=== PATIENT | female | born 1940 | race Caucasian/White ===

== ENCOUNTER 2016-08-24 09:37 | Inpatient (IN) | payer OTHER ==
[2016-08-24 09:52] LABS: URINE MICRO REVIEW NEEDED? NO; URINE SOURCE VOIDED
[2016-08-24 10:03] LABS: HEMATOCRIT 45.8 % (37.0-47.0); MCH 28.6 PG (27-31); MCHC 32.8 g/dL (33-37); MCV 87.4 FL (81-99); MPV 10.3 FL (7.4-10.4); RBC 5.24 XMIL (4.2-5.4)
[2016-08-24 10:04] LABS: BILIRUBIN URINE NEGATIVE (NEGATIVE); BLOOD URINE NEGATIVE (NEGATIVE); COLOR YELLOW; GLUCOSE URINE NEGATIVE (NEGATIVE); LEUKOCYTES URINE LARGE (NEGATIVE); NITRITE URINE NEGATIVE (NEGATIVE); PH URINE 6.5; PROTEIN URINE TRACE mg/dL (NEGATIVE); TURBIDITY URINE CLEAR (CLEAR); UR EPITHELIAL CELLS <10 /HPF (<10); URINE BACTERIA 1+ /HPF; URINE RBC <10 /HPF (<10); UROBILINOGEN URINE NORMAL (NORMAL)
[2016-08-24 11:29] LABS: ALBUMIN 3.7 g/dL (3.5-5.0); CALCIUM 9.2 mg/dL (8.8-10.2); POTASSIUM 4.2 mmol/L (3.5-5.1); TOTAL BILIRUBIN 0.56 mg/dL (0.20-1.00); TOTAL PROTEIN 6.3 g/dL (6.3-8.3)
--- NOTE | 2016-08-24 13:13 | Diag Imaging Result Document ---
PROCEDURE NAME: ABDOMEN/PELVIS W/O CONTRAST - 08/24/2016 CT ABDOMEN AND PELVIS WITHOUT CONTRAST: No contrast administered per request of the referring provider. A dose-reduction protocol was used. COMPARISON: 06/15/2016. FINDINGS: There is a moderate sized hiatal hernia similar to the previous exam. There are multiple hepatic cysts similar to the previous exam. There are no acute changes identified in the liver, spleen, adrenal glands, or pancreas. There are no calcified gallstones or pericholecystic inflammatory changes identified. There are no acute abnormalities of the bilateral kidneys identified. There is no renal stone or hydronephrosis seen. There are no substantially enlarged lymph nodes identified. There is no evidence of bowel obstruction. There is colonic diverticulosis which is most extensive at the proximal sigmoid and distal descending colon. There is wall thickening at the proximal sigmoid colon, and there is inflammation of a diverticulum and surrounding fat at this location, consistent with diverticulitis. There is no abscess identified. There is no free air. IMPRESSION: Diverticulitis at proximal sigmoid colon. No abscess. No free air.
[2016-08-24] MEDS: LEVAQUIN 750 MG/D5W 150 ML IV SCH (18:10)
[2016-08-24] MEDS: LOVENOX SUBQ SCH (18:10)
[2016-08-24] MEDS: NS 1,000 ML IV SCH (18:10)
--- NOTE | 2016-08-24 19:55 | HISTORY AND PHYSICAL ---
CHIEF COMPLAINT: Abdominal pain. HISTORY OF PRESENT ILLNESS: Ms. Carter is a 76-year-old, white female patient complaining of pain in the lower abdomen. Started day before yesterday. Cramping pain, mild to moderate in intensity. Gradually getting worse. Intensity was increasing. Patient also has chills. Mild nausea. The patient has a history of diverticular disease of the colon and ischemic colitis. The patient claims her pain was same as diverticulitis. Patient was not feeling comfortable. She came for evaluation. I evaluated the patient. The patient had tenderness left colonic area, hypogastric area. I sent her for blood work, urine test and CT scan of the abdomen and pelvis. Her urinalysis did reveal mild UTI. CT scan did reveal sigmoid diverticulitis. Offered her oral antibiotics. Patient claims she does not tolerate oral antibiotics well and her oral intake was poor since yesterday. I decided to admit the patient for IV fluids, IV antibiotics. The patient was complaining of mild nausea, but no vomiting. No diarrhea, blood, or mucus in the stool. Her last bowel movement was yesterday. No abdominal distention. She denied any hematuria, no vaginal discharge, spotting, bleeding. No typical chest pain, palpitation, orthopnea, PND. No unusual cough, expectoration, hemoptysis. The patient was feeling weak, tired and no energy. No joint swelling or redness. No further history available at this time. The patient does have chronic back pain. Joint pain. No major weight loss or weight gain. No heat or cold intolerance. No further history available at this time. ALLERGIES: Flagyl. Adhesives. HOME MEDICATIONS: Synthroid, Protonix, aspirin, Coreg, Plavix, laxative, Pepcid, TriCor, Neurontin, Claritin, Hyzaar, Singular, potassium. PAST MEDICAL HISTORY: Hypertension, allergic rhinitis, hypothyroidism, peripheral neuropathy, hyperlipidemia, gastritis, history suggestive of vascular disease, ischemic colitis requiring intestinal resection, low back pain, degenerative disk disease, noninsulin-dependent diabetes mellitus. PERSONAL HISTORY: Single. Nonsmoker. Denied alcohol or substance abuse. REVIEW OF SYSTEMS: As per HPI. FAMILY HISTORY: Noncontributory. PHYSICAL EXAMINATION: GENERAL: Elderly white female patient in no acute distress. VITAL SIGNS: Blood pressure 142/97, pulse 69, respiration 18, temperature 98.9 degrees. SKIN: Normal turgor. No rash or petechiae. HEENT: Head atraumatic, normocephalic. [place] conjunctivae. Anicteric sclerae. Extraocular muscle movement normal. Fundus cannot be penetrated. Good oral hygiene. No tonsillopharyngeal congestion or exudate. Ears and nose benign. NECK: Supple. No JVD, thyromegaly or lymphadenopathy. CHEST: Bilateral good air entry present. Few basal crepitations. No rales. CARDIOVASCULAR: S1 and S2 heard. No gallop or thrill. ABDOMEN: Soft, globular. Bowel sounds present. Diffuse abdominal tenderness, more so on the left colonic area, hypogastric area. No guarding or rigidity. EXTREMITIES: No cyanosis, clubbing. No acute DVT. HEALTH COACH: Alert, awake, oriented x3. No focalities. Crepitation both the knee joints. Tenderness lumbosacral spine. LABORATORY DATA: Revealed leukocyte count 10.71, hemoglobin 15, hematocrit 45.8, platelet count 256,000. Electrolytes fairly benign. BUN 11, creatinine was 1. Blood sugar 148, urinalysis 10- 20 WBC, leukocyte large 1+ bacteria. CT scan of the abdomen and pelvis did reveal evidence of sigmoid diverticulitis. CONSIDERATION: 1. Diverticulitis. 2. Urinary tract infection. 3. Noninsulin-dependent diabetes mellitus. 4. Hypertension. 5. Hyperlipidemia. 6. Gastritis. 7. Low back pain. 8. Osteoarthritis. PLAN: Admit the patient. IV hydration. IV antibiotics. Continue home medicine. Close observation. Overall plan discussed at length with the patient and family. Deep venous thrombosis prophylaxis. They are in agreement.
[2016-08-24] MEDS: COLACE PO SCH (20:38)
[2016-08-24] MEDS: COREG PO SCH (20:38)
[2016-08-24] MEDS: SINGULAIR PO SCH (20:38)
[2016-08-24] MEDS: KLOR-CON PO SCH (20:38)
[2016-08-24] MEDS: PEPCID PO SCH (20:38)
[2016-08-24] MEDS: NEURONTIN PO SCH (20:38)
[2016-08-24] MEDS: TRICOR PO SCH (20:39)
[2016-08-24] MEDS: PLAVIX PO SCH (20:39)
[2016-08-25] MEDS: NS 1,000 ML IV SCH ×4 (04:03→23:31)
--- NOTE | 2016-08-25 05:19 | EKG Report ---
Test Performed on : 08/24/2016 5:23:52 PM Test Reason : DIVERTICULITIS Blood Pressure : / mmHG Vent. Rate : 067 BPM Atrial Rate : 067 BPM P-R Int : 154 ms QRS Dur : 084 ms QT Int : 408 ms P-R-T Axes : 036 -11 -02 degrees QTc Int : 431 ms Normal sinus rhythm. Possible Lateral infarct , age undetermined Inferior-posterior infarct (cited on or before 02-JAN-2013) Abnormal ECG When compared with ECG of 28-AUG-2014 10:33, QT has shortened Confirmed by Dewayne HDZ, MEric Florez ([id number]) on 08/25/2016 11:05:40 AM
[2016-08-25 05:50] LABS: MANUAL DIFF NEEDED? NO
[2016-08-25 05:53] LABS: BASO% 0.2 % (0.0-0.8); EOS# 0.07 X1000 (0.0-0.7); EOS% 0.8 % (0.0-10.0); HEMATOCRIT 40.5 % (37.0-47.0); IMM GRAN# 0.03 X1000 (0.0-0.04); IMM GRAN% 0.3 % (0.0-0.5); LYMPH# 1.78 X1000 (1.2-3.4); MCH 28.6 PG (27-31); MCHC 32.1 g/dL (33-37); MONO# 1.03 X1000 (0.11-0.59); MONO% 11.6 % (1.7-9.3); MPV 10.5 FL (7.4-10.4); NEUT% 67.1 % (42.2-75.2); PLT 219 X1000 (130-400); RBC 4.55 XMIL (4.2-5.4)
[2016-08-25 06:29] LABS: AGAP 13; ALBUMIN 3.2 g/dL (3.5-5.0); ALKALINE PHOSPHATASE 45 U/L (32-104); BUN 8 mg/dL (8-22); CALCIUM 8.5 mg/dL (8.8-10.2); CHLORIDE 104 mmol/L (98-107); COSMO 280; GOT 11 U/L (10-30); GPT 13 U/L (10-36); MAGNESIUM 1.6 mg/dL (1.5-2.7); SODIUM 140 mmol/L (136-145); TCO2 23 mmol/L (25-35); TOTAL BILIRUBIN 0.58 mg/dL (0.20-1.00); TOTAL PROTEIN 5.6 g/dL (6.3-8.3)
[2016-08-25] MEDS ORDERED: GLYCERIN ADULT PR ONE (06:51)
[2016-08-25 07:20] LABS: HEMOGLOBIN A1C 6.3 % (4.8-6.0)
--- NOTE | 2016-08-25 07:24 | PROGRESS NOTE ---
DATE: 08/25/2016 SUBJECTIVE: Ms. Carter is feeling fair. The patient still has pain in the abdomen, more so in the left lower quadrant and hypogastrium. No nausea or vomiting. The pain is cramping in nature. No high-grade fever or chills. Denied any diarrhea. No dysuria or hematuria. No bleeding per rectum. The patient admitted with diverticulitis. She does have underlying diabetes, hypertension, history of ischemic bowel. OBJECTIVE: Vital Signs: Her vital signs were reviewed. Neck: Supple. No JVD. Lungs: Bilateral good air entry present. Cardiovascular: S1 and S2 heard. Abdomen: Soft. Tenderness in left lower quadrant, hypogastrium. No guarding or rigidity. Extremities: No cyanosis, clubbing. No acute DVT. Central Nervous System: Alert, awake. Able to move all 4 limbs. CONSIDERATION: 1. Diverticulitis. 2. Urinary tract infection. 3. Hypertension. 4. Noninsulin dependent diabetes mellitus. 5. Hyperlipidemia. 6. Gastritis. DIAGNOSTIC DATA: Labs done today, WBC count 8.88, hemoglobin 13, hematocrit 40.5, platelets 219,000. Electrolytes were fairly benign. PLAN: We will continue current treatment. The patient requested glycerin suppository. I am going to check hemoglobin A1c level. Out of bed to chair. The overall plan was discussed with the patient. She is in agreement.
[2016-08-25] MEDS: PEPCID PO SCH ×2 (09:46→21:59)
[2016-08-25] MEDS: CLARITIN PO SCH (09:46)
[2016-08-25] MEDS: NEURONTIN PO SCH ×2 (09:46→22:00)
[2016-08-25] MEDS: COREG PO SCH ×2 (09:46→21:59)
[2016-08-25] MEDS: ASPIRIN EC PO SCH (09:46)
[2016-08-25] MEDS: HYZAAR 100/12.5 MG TAB PO SCH (09:46)
[2016-08-25] MEDS: KLOR-CON PO SCH ×2 (09:46→21:59)
[2016-08-25] MEDS: SYNTHROID PO SCH (09:47)
[2016-08-25] MEDS: LEVAQUIN 750 MG/D5W 150 ML IV SCH (16:11)
[2016-08-25] MEDS: LOVENOX SUBQ SCH (16:11)
[2016-08-25] MEDS: TRICOR PO SCH (21:59)
[2016-08-25] MEDS: PLAVIX PO SCH (21:59)
[2016-08-25] MEDS: SINGULAIR PO SCH (22:00)
[2016-08-25] MEDS: COLACE PO SCH (22:00)
[2016-08-26] MEDS: NS 1,000 ML IV SCH ×2 (03:33→13:35)
[2016-08-26] MEDS: KLOR-CON PO SCH ×2 (08:37→21:12)
[2016-08-26] MEDS: ASPIRIN EC PO SCH (08:37)
[2016-08-26] MEDS: HYZAAR 100/12.5 MG TAB PO SCH (08:37)
[2016-08-26] MEDS: SYNTHROID PO SCH (08:37)
[2016-08-26] MEDS: COREG PO SCH ×2 (08:37→21:16)
[2016-08-26] MEDS: NEURONTIN PO SCH ×2 (08:37→21:13)
[2016-08-26] MEDS: PEPCID PO SCH ×2 (08:37→21:14)
[2016-08-26] MEDS: CLARITIN PO SCH (08:38)
--- NOTE | 2016-08-26 08:52 | PROGRESS NOTE ---
DATE: 08/26/2016 SUBJECTIVE: Ms. Carter is doing better. Her pain is getting better. The patient does feel hungry. She did have bowel movement yesterday. No high-grade fever or chills. Denied any chest pain. OBJECTIVE: Vital Signs: Her vital signs noted. Patient is afebrile. Neck: Supple. No JVD. Lungs: Bilateral good air entry present. CVS: S1 and S2 heard. Abdomen: Soft, globular. Bowel sounds present. Abdominal tenderness improving. Extremities: No cyanosis, clubbing, edema. CRM CAMPAIGN MANAGER: Alert, awake, able to move all 4 limbs. CONSIDERATION: Diverticulitis clinically improving. I am going to advance diet to a gastrointestinal soft diet. If clinically the patient improves, tolerates diet well, I am planning to discharge her home tomorrow. OTHER PROBLEMS: 1. Hypertension. 2. Non-insulin dependent diabetes mellitus. 3. Osteoarthritis. PLAN: Will ambulate the patient. Continue rest of the treatment. We will check appropriate labs tomorrow. Urine culture was no growth. Blood cultures so far negative. Overall plan discussed with the patient. She is in agreement.
[2016-08-26] MEDS: LOVENOX SUBQ SCH (16:33)
[2016-08-26] MEDS: LEVAQUIN 750 MG/D5W 150 ML IV SCH (16:33)
[2016-08-26] MEDS: PLAVIX PO SCH (21:16)
[2016-08-26] MEDS: TRICOR PO SCH (21:16)
[2016-08-26] MEDS: COLACE PO SCH (21:16)
[2016-08-26] MEDS: SINGULAIR PO SCH (21:16)
[2016-08-27] MEDS: NS 1,000 ML IV SCH (00:56)
[2016-08-27 06:23] LABS: MANUAL DIFF NEEDED? NO
[2016-08-27 06:56] LABS: AGAP 12; ALBUMIN 2.9 g/dL (3.5-5.0); ALKALINE PHOSPHATASE 42 U/L (32-104); BUN 9 mg/dL (8-22); CALCIUM 8.2 mg/dL (8.8-10.2); CHLORIDE 109 mmol/L (98-107); COSMO 283; GOT 12 U/L (10-30); GPT 9 U/L (10-36); POTASSIUM 3.8 mmol/L (3.5-5.1); SODIUM 142 mmol/L (136-145); TCO2 21 mmol/L (25-35); TOTAL PROTEIN 5.2 g/dL (6.3-8.3)
[2016-08-27 07:00] LABS: BASO% 0.6 % (0.0-0.8); EOS# 0.11 X1000 (0.0-0.7); HEMATOCRIT 37.4 % (37.0-47.0); IMM GRAN# 0.04 X1000 (0.0-0.04); IMM GRAN% 0.7 % (0.0-0.5); LYMPH# 1.78 X1000 (1.2-3.4); LYMPH% 32.8 % (20.5-51.1); MCH 28.7 PG (27-31); MCHC 32.1 g/dL (33-37); MCV 89.5 FL (81-99); MONO# 0.57 X1000 (0.11-0.59); MONO% 10.5 % (1.7-9.3); MPV 10.7 FL (7.4-10.4); NEUT% 53.4 % (42.2-75.2); PLT 215 X1000 (130-400); RBC 4.18 XMIL (4.2-5.4)
[2016-08-27] MEDS: NEURONTIN PO SCH (08:04)
[2016-08-27] MEDS: ASPIRIN EC PO SCH (08:04)
[2016-08-27] MEDS: SYNTHROID PO SCH (08:04)
[2016-08-27] MEDS: KLOR-CON PO SCH (08:04)
[2016-08-27] MEDS: PEPCID PO SCH (08:04)
[2016-08-27] MEDS: CLARITIN PO SCH (08:05)
[2016-08-27] MEDS: COREG PO SCH (08:05)
[2016-08-27] MEDS: HYZAAR 100/12.5 MG TAB PO SCH (08:05)
[2016-08-27 11:54] VITALS: BP 152/56
--- NOTE | 2016-08-28 07:35 | DISCHARGE SUMMARY ---
ADMISSION DATE: 08/24/2016 DISCHARGE DATE: 08/27/2016 FINAL DISCHARGE DIAGNOSES: 1. Diverticulitis. 2. Hypertension. 3. Non-insulin dependent diabetes mellitus. 4. Low back pain. 5. Hypothyroidism. 6. Gastritis and reflux disease. 7. History of ischemic colitis. HISTORY OF PRESENT ILLNESS: Ms. Carter is a 76-year-old, white female patient admitted with abdominal pain, mild nausea, abdominal tenderness. I evaluated patient in the office sent her for workup. Urinalysis did reveal UTI. Urine culture was negative. CT scan of the abdomen did reveal sigmoid diverticulitis. The patient was more symptomatic she had history of ischemic colitis requiring surgery. The patient was concerned. The patient had problems tolerating medication by mouth. We decided to admit the patient for further care. The patient was treated with IV fluids, IV antibiotics and symptomatic care. Her clinical condition gradually improved. She started tolerating food well. Her pain improved. No fever, chills, nausea, vomiting. Today she was complaining of mild discomfort but no major pain or soreness. She did have a bowel movement yesterday. OBJECTIVE: Vital Signs: Noted. Afebrile. Lungs: Clear. Heart: Regular. Abdomen: Soft. No distention. Bowel sounds present. Tenderness in the left lower quadrant improved significantly. Patient still has minimal tenderness. Extremities: No cyanosis, clubbing or edema. PROCUREMENT FORESTER: Alert, awake, able to move all 4 limbs. LABORATORY DATA: Did show significant improvement in WBC count. Hemoglobin 12, hematocrit 37.42, platelet count 215,000. Electrolytes fairly benign. CT scan of the abdomen and pelvis did reveal sigmoid diverticulitis. No abscess. No free air. DISCHARGE INSTRUCTIONS: I had a lengthy discussion with the patient about proper diet for diverticulitis. I am going to send her home on Levaquin, plenty of liquids orally, continue home medicine. FOLLOWUP: Follow up with me in a week. In case of more distress, call us back or go to the emergency room. DISPOSITION: Overall discharge condition satisfactory.
== END 2016-08-27 12:31 | disposition home or self-care (01) | DRG 392 ==
LOC: LAB 09:37 → DIRADM 15:23 → 4N 16:40
PROVIDERS: ADMIT Internal Medicine; ATTEND Internal Medicine
DX: K57.32 Diverticulitis of large intestine without perforation or abscess without bleeding (principal); E11.42 Type 2 diabetes mellitus with diabetic polyneuropathy; N39.0 Urinary tract infection, site not specified; I10 Essential (primary) hypertension; E78.5 Hyperlipidemia, unspecified; K29.70 Gastritis, unspecified, without bleeding; M19.90 Unspecified osteoarthritis, unspecified site; Z90.49 Acquired absence of other specified parts of digestive tract; K21.9 Gastro-esophageal reflux disease without esophagitis; Z79.899 Other long term (current) drug therapy; Z79.82 Long term (current) use of aspirin; Z79.02 Long term (current) use of antithrombotics/antiplatelets
CPT/HCPCS: 74176; 80053; 81001; 83036; 83735; 85025; 85027; 87040; 87088; 93005; 93010; 94760; 94761; J1650; J7030